=== PATIENT | male | born 1980 | race Caucasian/White ===

== ENCOUNTER → 2020-07-27 | Outpatient (CLI) | payer OTHER ==
[~2020-07-27] MED LIST: IBUPROFEN800 MG PO; LEXAPRO20 MG PO; LORATADINE10 MG PO; LOW DOSE ASPIRI81 MG PO; METHYLPHENIDATE10 M1 PO; OMEPRAZOLE20 M1 PO; PERCOCET 5-3251 EACH PO; PROZAC20 MG PO; VITAMIN D325 MC6 PO; ZOFRAN ODT4 MG PO; ZYRTEC10 MG PO
== END ==
LOC: SLEEP 07-09 10:48
DX: G47.33 Obstructive sleep apnea (adult) (pediatric) (principal)
CPT/HCPCS: 95810

== ENCOUNTER → 2020-08-11 | Day surgery (SDC) | payer OTHER ==
[2020-08-11 11:53] LABS: RED BLOOD COUNT 4.46 M/UL (4.20-5.50); WHITE BLOOD COUNT 10.3 K/UL (4.5-11.0)
== END | disposition home or self-care (01) ==
LOC: OR 08-10 11:15
PROVIDERS: Surgery
DX: D12.5 Benign neoplasm of sigmoid colon (principal); I10 Essential (primary) hypertension; R73.9 Hyperglycemia, unspecified; K21.9 Gastro-esophageal reflux disease without esophagitis; F90.9 Attention-deficit hyperactivity disorder, unspecified type; J30.9 Allergic rhinitis, unspecified; E78.2 Mixed hyperlipidemia; E66.9 Obesity, unspecified; G47.33 Obstructive sleep apnea (adult) (pediatric); F41.9 Anxiety disorder, unspecified; F32.9 Major depressive disorder, single episode, unspecified; Z87.891 Personal history of nicotine dependence; Z99.89 Dependence on other enabling machines and devices
CPT/HCPCS: 36415; 85027; J2001; J2704; J7030

== ENCOUNTER → 2020-11-05 | Outpatient (CLI) | payer OTHER | LOC: SLEEP 12:20 | DX: G47.33 Obstructive sleep apnea (adult) (pediatric) (principal) | CPT/HCPCS: 95811 ==

== ENCOUNTER → 2020-11-23 | Outpatient (CLI) | payer OTHER | LOC: KOH-I 11:47 | DX: M79.675 Pain in left toe(s) (principal); M25.551 Pain in right hip; S92.515A Nondisplaced fracture of proximal phalanx of left lesser toe(s), initial encounter for closed fracture; X58.XXXA Exposure to other specified factors, initial encounter | CPT/HCPCS: 73502; 73630 ==

== ENCOUNTER → 2021-11-06 | Outpatient (CLI) | payer OTHER ==
[2021-11-06 18:40] LABS: HEMOGLOBIN 12.4 gm/dl (14.0-17.5); RED BLOOD COUNT 5.36 M/UL (4.20-5.50); WHITE BLOOD COUNT 9.3 K/UL (4.5-11.0)
== END ==
LOC: RAD 17:10
PROVIDERS: Family Medicine
DX: J20.9 Acute bronchitis, unspecified (principal); D64.9 Anemia, unspecified
CPT/HCPCS: 71046; 82607; 82728; 83540; 83550; 85025; 85045